=== PATIENT | female | born 1980 ===

== ENCOUNTER 2018-02-01 09:44 | Day surgery (SDC) | payer MEDICAID ==
[2018-01-26 08:17] VITALS: BMI 33.3
[2018-02-01] MEDS ORDERED: Propofol 10 mg/ml Inj (20 ML) ONE (10:13)
[2018-02-01 10:19] VITALS: O2SAT 100
[2018-02-01] MEDS ORDERED: Sodium Chloride 0.9% 1,000 ML IV SCH (10:45)
[2018-02-01 11:29] VITALS: BP 115/65; PULSE 64; TEMP 98.2
[2018-02-01 12:52] VITALS: RESP 16
== END 2018-02-01 11:59 | disposition home or self-care (01) ==
LOC: ENDO 09:44
PROVIDERS: ATTEND Internal Medicine
DX: K29.70 Gastritis, unspecified, without bleeding (principal); R14.0 Abdominal distension (gaseous); R10.9 Unspecified abdominal pain
CPT/HCPCS: 43239; 88305; 88342; J2001; J2704; J7040 ×2